=== PATIENT | male | born 1990 | race Two or more races ===

== ENCOUNTER 2019-05-12 20:01 | Emergency (ER) | payer MEDICAID ==
[~2019-05-12] VITALS: Ht 167.6 cm; Wt 57.0 kg
[2019-05-12 20:13] VITALS: BP 117/77
== END 2019-05-12 23:14 | disposition left against medical advice (07) ==
LOC: ER 20:01
DX: Z53.21 Procedure and treatment not carried out due to patient leaving prior to being seen by health care provider (principal)